=== PATIENT | female | born 1980 | race American Indian/Alaskan Native ===

== ENCOUNTER 2019-09-09 20:44 | Inpatient (IN) | payer MEDICAID ==
[2019-09-09] MEDS ORDERED: Lactated Ringers 1,000 ML IV ONE (21:00)
[2019-09-09] MEDS ORDERED: Ondansetron 4 MG/2 ML SDV ONE (21:23)
[2019-09-09] MEDS ORDERED: Carboprost Tromethamine 250 MCG/1 ML Amp ONE (21:38)
[2019-09-09] MEDS ORDERED: Methylergonovine 0.2 MG/1 ML Amp ONE (21:38)
[2019-09-09] MEDS ORDERED: Oxytocin/Normal Saline 30 UNIT/500 ML BAG ONE (21:38)
[2019-09-09] MEDS ORDERED: Carboprost Tromethamine 250 MCG/1 ML Amp IM PRN (21:40)
[2019-09-09] MEDS ORDERED: Sodium Chloride 0.9% 10 ML Syringe FLUSH PRN ×2 (21:40→23:22)
[2019-09-09] MEDS ORDERED: Penicillin G Potassium 5 MILLUNITS in Sodium Chloride 0.9% 100 ML IV ONE (21:40)
[2019-09-09] MEDS ORDERED: Lactated Ringers 500 ML IV ONE (21:40)
[2019-09-09] MEDS ORDERED: Tranexamic Acid 1,000 MG in Sodium Chloride 0.9% 100 ML IV PRN (21:40)
[2019-09-09] MEDS ORDERED: Methylergonovine 0.2 MG/1 ML Amp IM PRN (21:40)
[2019-09-09] MEDS ORDERED: Ondansetron 4 MG/2 ML SDV IV PRN (21:40)
[2019-09-09] MEDS ORDERED: Misoprostol 400 MCG (4 X 100 MCG TAB) RECTAL PRN (21:40)
[2019-09-09] MEDS ORDERED: Lidocaine 1% 30 ML SDV INJECT PRN (21:40)
[2019-09-09] MEDS ORDERED: fentaNYL 100 MCG/2 ML SDV ONE (21:41)
[2019-09-09] MEDS ORDERED: EPINEPHrine 1 MG/1 ML Amp ONE (21:41)
[2019-09-09] MEDS ORDERED: Lactated Ringers 1,000 ML IV SCH (21:45)
[2019-09-09] MEDS ORDERED: Oxytocin/Normal Saline 30 UNIT/500 ML BAG IV SCH (21:45)
--- NOTE | 2019-09-09 22:13 | PCM.PRNOTE ---
- Free Text/Narrative Note: Requested to provide analgesia to full term patient in severe pain. Upon entering the room, patient is sitting on edge of bed complaining of severe abdominal/pelvic pain and discomfort. Procedure was discussed with patient including adverse outcomes and expectations. Pt consented to analgesia, SAB/ IT. Pt placed into a proper sitting position. Landmarks for SAB/IT were identified and marked. Hands were washed and appropriate PPE was applied. Back was prepped with betadine x3. A sterile, transparent, fenestrated drape was applied. Excess betadine was removed. Using 3 mL of a 1% lidocaine solution , a skin wheel was placed at the L2/L3 interspace. A 24 ga (4 inch) [place] spinal needle was inserted until positive for CSF. Negative for heme or paresthesias. Injected fentanyl 30 mcg, sufentanil 25 mcg, and 7.5 mg of a 0.75 % bupivacaine solution with an epi wash. Pt was placed left lateral position for approximately 20 minutes. There were zero complications or adverse outcomes. Will continue to monitor. Procedure Date & Time: 09-09-19 [id number]
[2019-09-09] MEDS ORDERED: Simethicone 80 MG Tab.Chew PO PRN (23:22)
[2019-09-09] MEDS ORDERED: Diphtheria,Pertussis(Acell),Tetanus Vaccine 0.5 ML SDV IM ONE (23:22)
[2019-09-09] MEDS ORDERED: Benzocaine/Menthol 20%-0.5% Spray 56 GM Canister TOP PRN (23:22)
--- NOTE | 2019-09-10 01:32 | HP ---
CHIEF COMPLAINT: Increased uterine contractions. HISTORY OF PRESENT ILLNESS: The patient is a 39-year-old 6, para 3-1-1- 4, currently at 35 and 5/7 weeks of her based on 24-week ultrasound, presenting to Labor and Delivery complaining of contractions that started yesterday, and then about 1 hour prior to arrival became much more intense, and her boyfriend convinced her to come in. She has a history of 1 prior after premature rupture of membranes as a teenager. Her other babies have been delivered full term. This , she has had insufficient care. Her initial visit was with me at 24 and 5/7 weeks gestation at that time. She reported ultrasound and all labs had previously been done at [facility]. In all actuality, the patient had only had an ultrasound performed and CBC, CMP, and urinalysis and none of the actual panel was drawn and she did not have it done at her initial care visit when she came for her 2nd visit at 30 weeks and 5/7 days. She drank her glucose drink, but left before having any of her labs drawn, and so she does not have her routine panel. She reported methamphetamine use in the very early part of the before she found out she was , but reports discontinued use after that time. The father (her ) of the baby is currently reported to be denying paternity. However, she reported that they were going to be and he purposefully got her in order to try and salvage the relationship. Please review my clinic history and physical for all of the prior information that I had obtained from her. At this time, she is denying any leakage of fluid, vaginal bleeding. movement has been good. No chest pain or shortness of breath. No nausea or vomiting. No symptoms of preeclampsia. OBSTETRICAL HISTORY: 1. 01/2000 at 36 weeks, delivered female infant, spontaneous vaginal delivery, weighing 2608 g with premature rupture of membranes. 2. 10/04/2004 at 37 weeks and 4/7 days gestation, term male, vaginal spontaneous delivery, 3402 g, complicated by anemia of . 3. 2006, 5-week therapeutic initiated via pill form. 4. 10/2007, 38-week gestation, spontaneous vaginal delivery, male , 3204 g, reporting nitrous did not help with her pain control. 5. 09/27/2014, 40 weeks and 1 day gestation, vaginal spontaneous delivery, male infant, 3190 g. Blood type is noted to be O positive. She did have her Tdap and influenza vaccines this . Had not completed any of her other labs as she would tend to leave the clinic before having them drawn for the 2 times that she was there. She also had reported that they were done previously in [facility], which in fact was not the case. PAST MEDICAL HISTORY: 1. Abnormal Pap smears in 2001 and 2003, previous LSIL with positive HPV. 2. Asthma. 3. Chickenpox as a child. 4. History of ear piercings. 5. History of methamphetamine abuse. 6. Migraine headaches. 7. History of pneumothorax. 8. delivery. 9. Smoker. 10.Tattoos. 11.Left middle toe fracture. PAST SURGICAL HISTORY: 1. Chest tube insertion in 10/2000. 2. Vaginal colposcopy in 2001. 3. [place] teeth extraction. FAMILY HISTORY: Mother with cervical cancer. Father with stomach cancer. Two of her sisters have had multiples. Other siblings are all alive and well with no medical issues. Maternal grandmother and is a twin herself. Other grandparents are . SOCIAL HISTORY: She is an everyday smoker. Denies alcohol use during the . Denies substance use since finding out that she was ; however, admission UDS is positive for methamphetamine. Unexpectedly and was working at [employer]. Father of the baby is her and living in [place] and runs his own [employer] company. The patient had been living between [place] and [facility] with their 5-year-old son, but upon admission to the hospital, she is here with her boyfriend and reports living with him here in [facility]. Her 2 other boys live with their biological father and her 19-year-old daughter has moved out of the house and is on her own. MEDICATIONS: Iron 325 mg daily, vitamin 1 daily. ALLERGIES: No known drug allergies. REVIEW OF SYSTEMS: As per the history of present illness. No fever, chills, nausea, vomiting, diarrhea, constipation, leakage of fluid, vaginal bleeding, skin rashes, neurological symptoms or concerns, and no other complaints. PHYSICAL EXAMINATION: General: A 39-year-old female in significant distress, especially when she has her contractions. Vital Signs: Temperature is 97.5, pulse 82, blood pressure 111/70, respiratory rate of 16, O2 saturations 95% on room air. HEENT: Grossly unremarkable. Heart: Regular without obvious murmur. Lungs: Clear to auscultation bilaterally. Abdomen: Soft and nontender. Fundus is firm and below the umbilicus. Extremities: No edema, erythema or tenderness noted. Genitourinary: Cervical exam, [address] Soliman's report with bag of water intact, 135 beats per minute. Moderate pihs-am-qbya variability. Accelerations are noted. Duncan every 2 minutes. ASSESSMENT: 1. A 35 and 5/7 weeks' intrauterine based on 24-week ultrasound. 2. 6, para 3-1-1-4. 3. High-risk . 4. Prior request for sterilization. 5. Migraine headaches. 6. History of methamphetamine abuse. 7. Blood type O positive. 8. Asthma. 9. Smoker. 10. labor. PLAN: At this time, we will be expecting vaginal delivery. Patient can have an intrathecal for pain management as soon as anesthesia is available. Anticipate need for more intense care. Discussed potential for need of transfer to NICU after he is born. Mother's questions have been answered. anatomy ultrasound was done at [facility]. Baby was breech at that time and otherwise had normal anatomy. [facility] /[id number] MTDD
--- NOTE | 2019-09-10 01:53 | DEL ---
DATE: 09/10/2019 PREPROCEDURE DIAGNOSES: 1. 35 and 5/7 weeks' intrauterine based on 24-week ultrasound. 2. labor. 3. High-risk . 4. Smoker. 5. History of migraines. 6. Request for sterilization. 7. History of methamphetamine abuse. 8. Blood type O positive. 9. Asthma. 10.Insufficient care. 11.History of prior delivery. POSTPROCEDURE DIAGNOSES: 1. 35 and 5/7 weeks' intrauterine based on 24-week ultrasound. 2. labor. 3. High-risk . 4. Smoker. 5. History of migraines. 6. Request for sterilization. 7. History of methamphetamine abuse. 8. Blood type O positive. 9. Asthma. 10.Insufficient care. 11.History of prior delivery. 12.Positive methamphetamine on urine drug screen. 13.Placental abruption noted with bloody amniotic fluid as well as abnormal area of infarct on the placenta. BRIEF HISTORY: A 39-year-old female with the above-listed diagnoses, presented to the hospital in active labor and found to be 6 cm on admission. She was given an intrathecal for pain management and labor progressed rapidly thereafter. She had spontaneous rupture of membranes with blood-tinged fluid noted. When baby delivered, the fluid was noted to be a dark red/wine color and inspection of the placenta revealed an area consistent with chronic infarct. Placental abruption/infarct suspected as a cause of the labor. DETAILS: With the patient in dorsal lithotomy position, she delivered a viable male infant in CONNOR position over intact perineum. Baby initially appeared with poor tone and purple skin color, making insufficient respiratory efforts. Three - vessel umbilical cord was quickly doubly clamped, cut and baby taken to the warmer for further resuscitation. While the cord was being clamped and cut, baby was also bulb suctioned. Baby had a need for more advance resuscitation, which was performed by Dr. Lucy Soliman. The placenta was delivered by gentle cord traction and concomitant uterine massage, inspected intact and found to have an area of infarct. The labia and vagina were inspected and intact, no need for any repairs. COMPLICATIONS: None. ESTIMATED BLOOD LOSS: 300 mL. FINDINGS: 1. Viable male . Estimated gestational age 35 weeks 5 days, exam was consistent with those dates. 2. Blood-stained amniotic fluid and placental infarct area consistent with placental abruption, suspected to be due to methamphetamine use. 3. Baby requiring resuscitation including 3 minutes of positive pressure ventilation and 30 seconds of compressions, and then he responded well thereafter. DISPOSITION: Mother to stay in the delivery room. Baby taken to the normal nursery for further evaluation and ongoing management with high risk of needing to be transferred to the Intensive Care Nursery. [facility] /[id number] RADHA
[2019-09-10] MEDS: Ibuprofen 800 MG Tab PO PRN ×2 (07:36→17:05)
[2019-09-10] MEDS: Prenatal Multivitamin with Calcium/Folic Acid/Iron Tab PO SCH (08:47)
[2019-09-10] MEDS: Ferrous Sulfate 325 MG Tab PO SCH ×2 (08:47→21:06)
--- NOTE | 2019-09-10 11:02 | PN ---
DATE: 09/10/2019 SUBJECTIVE: Postdelivery day #1. The patient reports doing well, ambulating, tolerating regular diet, voiding without difficulties, passing flatus. Has not yet had a bowel movement. Bleeding has been minimal. No foul-smelling drainage. No chest pain or shortness of breath. She denies any acute concerns. The patient was questioned about the positive methamphetamine on UDS, and she maintains that she quit using methamphetamine in the beginning of the as soon as she found out which would have been back in February or March. Also denies need for a nicotine patch.Reports that the boyfriend with her is a good individual and there are no concerns about domestic violence or abuse. OBJECTIVE: General: Pleasant, well-appearing 39-year-old female. Vital Signs: Temperature is 97.9, pulse 69, blood pressure 97/54, respiratory rate of 16. Heart: Regular without murmur. Lungs: Clear to auscultation bilaterally. Abdomen: Soft and nontender. Fundus is firm and below the umbilicus. Extremities: No edema, erythema, or tenderness noted. LABORATORY DATA: Hemoglobin is down to 9.4 and platelets 265. HIV test is negative. Further serology and panel tests are not yet available. ASSESSMENT: 1. day #1, status post spontaneous vaginal delivery at 35 weeks 5 days. 2. Now 6, para 3-2-1-5. 3. Smoker. 4. History of methamphetamine abuse. 5. Asthma. 6. Insufficient care. 7. Placental abruption/infarct. 8. Anemia of blood loss. PLAN: Continue routine cares. Anticipate discharge home on day #3 because baby was born only shortly before midnight and baby needs to be kept in the hospital for at least 48 hours prior to discharge because of status. Also, group B strep status was unknown. She was treated in labor. [facility] /[id number] RADHA
[2019-09-10] MEDS: Acetaminophen 325 MG Tab PO PRN (13:34)
[2019-09-10] MEDS: Docusate Sodium 100 MG Cap PO PRN (21:06)
[2019-09-11] MEDS: Ibuprofen 800 MG Tab PO PRN ×3 (00:44→20:24)
[2019-09-11] MEDS: Prenatal Multivitamin with Calcium/Folic Acid/Iron Tab PO SCH (08:39)
[2019-09-11] MEDS: Ferrous Sulfate 325 MG Tab PO SCH ×2 (08:39→20:24)
[2019-09-11] MEDS: Docusate Sodium 100 MG Cap PO PRN ×2 (08:40→20:25)
[2019-09-11] MEDS: Acetaminophen 325 MG Tab PO PRN ×2 (15:29→20:25)
[2019-09-12] MEDS: Acetaminophen 325 MG Tab PO PRN (02:31)
[2019-09-12] MEDS: Ibuprofen 800 MG Tab PO PRN (04:40)
[2019-09-12] MEDS ORDERED: Measles, Mumps & Rubella Vaccine 0.5 ML SDV SUBCUT ONE (06:26)
--- NOTE | 2019-09-12 07:49 | PN ---
DATE: 09/11/2019 SUBJECTIVE: Post-delivery day #2. The patient was doing well, ambulating, tolerating regular diet, passing flatus without difficulty, voiding without problems. No chest pain or shortness of breath. Blood flow has been light. No foul-smelling discharge. She was denying any other acute concerns. She is her baby and having some difficulties on the left, but able to feed okay on the right; has been working with the marketing database consultant. She is looking forward to discharge as soon as possible. Denies any need for nicotine patch. OBJECTIVE: General: A pleasant 39-year-old female. Vital Signs: Temperature 98.2, pulse 72, blood pressure 103/57, and respiratory rate of 16. Heart: Regular without any obvious murmur. Lungs: Clear to auscultation bilaterally. Abdomen: Soft and nontender. Fundus is firm and below the umbilicus. Extremities: No edema, erythema, or tenderness noted. LABORATORY DATA: Hemoglobin was down to 9.4, not rechecked again today; platelets were 265. ASSESSMENT: 1. day #2, status post spontaneous vaginal delivery at 35 and 5/7 weeks. 2. Now 6, para 3-2-1-5. 3. Smoker. 4. History of methamphetamine abuse. 5. Asthma. 6. Insufficient care. 7. Suspected placental abruption with infarct seen on placenta. 8. Anemia of blood loss. Continue routine cares. Anticipate discharge home tomorrow. The patient needs to stay with her baby as her baby was only 35 weeks and 5 days, he needs further observation. Also, she was group B strep status unknown, received 1 dose of penicillin in labor. [facility] /[id number]
[2019-09-12 09:47] VITALS: BP 107/60; PULSE 78
[2019-09-12] MEDS: Ferrous Sulfate 325 MG Tab PO SCH (10:33)
[2019-09-12] MEDS: Prenatal Multivitamin with Calcium/Folic Acid/Iron Tab PO SCH (10:33)
[2019-09-12] MEDS ORDERED: Diphtheria,Pertussis(Acell),Tetanus Vaccine 0.5 ML SDV IM ONE (10:45)
[2019-09-12] MEDS ORDERED: fentaNYL 100 MCG/2 ML SDV ITHECAL ONE (13:19)
[2019-09-12] MEDS ORDERED: EPINEPHrine 1 MG/1 ML Amp ONE (13:19)
--- NOTE | 2019-09-14 10:10 | DISCH ---
ADMISSION DIAGNOSES: 1. 35 and 5/7 weeks by 24-week ultrasound in active labor. 2. 6, para 3-1-1-4. 3. Spontaneous labor. 4. Smoker. 5. History of migraine headaches. 6. Requests sterilization. 7. History of methamphetamine abuse. 8. Blood type O positive, group B strep unknown. 9. Asthma. 10.History of delivery. 11.Positive methamphetamine on urine drug screen. 12.Insufficient and late care. DISCHARGE DIAGNOSES: 1. 35 and 5/7 weeks by 24-week ultrasound in active labor. 2. 6, para 3-1-1-4. 3. Spontaneous labor. 4. Smoker. 5. History of migraine headaches. 6. Requests sterilization. 7. History of methamphetamine abuse. 8. Blood type O positive, group B strep unknown. 9. Asthma. 10.History of delivery. 11.Positive methamphetamine on urine drug screen. 12.Insufficient and late care. 13.Abnormal placenta, infarct verified with pathology, less than 10% placental volume. 14.Anemia of acute blood loss. 15.Status post spontaneous vaginal delivery. PROCEDURES PERFORMED: Intrathecal and spontaneous vaginal delivery without complications. BRIEF HISTORY: A 39-year-old female with the above-listed diagnoses, presented to the hospital 6 cm dilated and in spontaneous labor. She was given intrathecal for pain management and progressed rapidly thereafter with uncomplicated delivery. Surprisingly, baby was doing quite well and able to stay here and not be transferred to the Intensive Care Nursery and required only 30 seconds of compressions and about 3 minutes of positive pressure ventilation. Mother herself did well after delivery and has been meeting all of the normal post vaginal delivery criteria. Placenta was noted to be infarcted with a 4 to 5 cm area of thick placenta with visible clots in the blood vessels. DISCHARGE CONDITION: Good. PHYSICAL EXAMINATION: VITAL SIGNS: Temperature is 97.8, pulse 78, blood pressure 107/60, respiratory rate of 18, O2 saturations 100% on room air. HEART: Regular without murmur. LUNGS: Clear to auscultation bilaterally. ABDOMEN: Soft and nontender. Fundus is firm and below the umbilicus. EXTREMITIES: No edema, erythema, or tenderness. LABORATORY DATA: Final hemoglobin 9.4, platelets 265. DISPOSITION: Home with family. MEDICATIONS: 1. Ibuprofen 800 mg every 8 hours as needed for pain. 2. Tylenol 650 mg every 8 hours as needed for pain. 3. Colace 100 mg twice daily as needed for constipation. 4. Iron 325 mg twice daily. 5. vitamin once daily. INSTRUCTIONS: Routine post vaginal delivery instructions for mother were provided. FOLLOWUP: She will need to see me in the office in 6 weeks for routine exam. That appointment will be scheduled when she brings her baby in for first check. Her questions have been answered and she has been given all instruction by the nurses. [facility] /[id number]
== END 2019-09-12 13:20 | disposition home or self-care (01) | DRG 805 ==
LOC: DL.OBCHECK 20:44 → DL.OB 21:40 → OBSVTOIN 22:32 → DL.OB 22:32
PROVIDERS: ADMIT Family Medicine; ATTEND Family Medicine
PROC: 10E0XZZ Delivery of Products of Conception, External Approach (ICD-10-PCS; principal; 2019-09-10)
PROC: 3E0R3BZ Introduction of Anesthetic Agent into Spinal Canal, Percutaneous Approach (ICD-10-PCS; 2019-09-10)
DX: O60.14X0 Preterm labor third trimester with preterm delivery third trimester, not applicable or unspecified (principal); O45.93 Premature separation of placenta, unspecified, third trimester; Z37.0 Single live birth; D62 Acute posthemorrhagic anemia; O99.354 Diseases of the nervous system complicating childbirth; O99.02 Anemia complicating childbirth; G43.909 Migraine, unspecified, not intractable, without status migrainosus; O99.52 Diseases of the respiratory system complicating childbirth; J45.909 Unspecified asthma, uncomplicated; O99.334 Smoking (tobacco) complicating childbirth; F17.200 Nicotine dependence, unspecified, uncomplicated; O43.813 Placental infarction, third trimester; Z3A.35 35 weeks gestation of pregnancy
CPT/HCPCS: 36415; 51701; 59409; 80305-QW; 85025; 85027; 86592; 86762; 86803; 87340; 87389; 90471; 90707; 90715; A9270-GY; J0171; J2405; J2540; J2590; J3010; J7050; J7120